=== PATIENT | female | born 1975 | race Caucasian/White ===

== ENCOUNTER 2017-09-30 11:24 | Emergency (ER) | payer BC ==
[~2017-09-30] VITALS: Ht 177.8 cm; Wt 75.3 kg
[2017-09-30 11:37] VITALS: TEMP 36.3; Ht 177.8 cm; Wt 75.3 kg
--- NOTE | 2017-09-30 13:07 | DIAGNOSTIC IMAGING REPORT ---
L HAND MIN 3 VIEWS ROUTINE CLINICAL HISTORY: L 3rd-5th finger pain s/p fall trauma. Pain. COMPARISON: None. DISCUSSION: The bones and joint spaces appear intact. There is no evidence of fracture, dislocation or bony disease. There is no evidence for soft tissue swelling. IMPRESSION: Negative study. The above report was generated using voice recognition software. It may contain grammatical, syntax or spelling errors. Electronically signed by: Omega Reaves M.D. 09/30/2017 1:06 PM Dictated Date/Time: 09/30/2017 1:05 PM
[2017-09-30] MEDS ORDERED: TRAM-10 PO (13:30)
[2017-09-30 13:38] VITALS: BP 111/74; PULSE 89; O2SAT 99
--- NOTE | 2017-09-30 15:38 | EMERGENCY ROOM VISIT NOTE ---
History First contact with patient: 11:53 Chief Complaint: FINGER PAIN Stated Complaint: FALL - SWOLLEN & BRUISED FINGERS History of Present Illness The patient is a 42 year old female who presents to the Emergency Room with complaints of injuries to her left hand after slipping on wooden stairs and falling down 12 steps today. Other then mild bruising to the right hip and right elbow, the patient complains mostly of left hand pain, specifically the ring finger. She reports a cut to the third finger as well. Tetanus immunization is up-to-date. The patient is [id number], and rates her discomfort an 8 out of 10. The patient denies any head injury, neck pain, back pain, rib pain, shortness of breath or abdominal pain. Review of Systems 10 system review was performed and was negative except for pertinent positives and negatives as indicated in history of present illness Past Medical/Surgical History Medical Problems: (1) No significant past medical history Surgical Problems: (1) No history of previous surgery Family History Unremarkable Social History Smoking Status: Never Smoker Alcohol Use: none Marital Status: Housing Status: lives with family Occupation Status: employed Current/Historical Medications Scheduled PRN Tramadol (Ultram), 1-2 TAB PO Q4H PRN for Pain Physical Exam Vital Signs Date Time Temp Pulse Resp B/P (MAP) Pulse Ox O2 Delivery O2 Flow Rate FiO2 09/30/17 13:38 89 18 111/74 99 09/30/17 11:37 36.3 73 18 117/73 99 Room Air Physical Exam CONSTITUTIONAL: Healthy and well nourished. Alert and oriented X 3 with positive affect. Patient does not appear in any acute distress on exam. HEENT: Normocephalic, atraumatic. Pupils equal, round and reactive. No epistaxis, hemotympanum, raccoon's eyes or Steward sign. NECK: Full active range of motion without discomfort. RESPIRATORY: Clear to auscultation bilaterally with no wheezing, crackles, rhonchi or stridor. CARDIOVASCULAR: Regular rate and rhythm with no murmurs, rubs or gallops. GASTROINTESTINAL: Bowel sounds present in all quadrants. Soft and nontender to palpation. MUSCULOSKELETAL: Examination of the left hand shows notable edema and ecchymosis of the left fourth finger. Although collateral ligaments are intact , the patient has significant discomfort while doing so. She is unable to flex and extend the finger because of discomfort. She also has mild erythema and edema of the third through fifth fingers. She has a small laceration of the nail fold of the third finger that is well approximated. The patient has no focal tenderness to palpation through the metacarpals or wrists. The patient is unable to flex the fourth finger because of pain. Otherwise the patient has no other significant findings: Comprehensive musculoskeletal exam. Distal pulses are intact. INTEGUMENTARY: No rash or other significant dermatologic conditions noted. NEUROLOGIC: Left hand and fingers are sensory intact. Medical Decision & Procedures ER Provider Diagnostic Interpretation: My interpretation of left hand x-rays does not show any obvious fractures or dislocations. Radiologist report is as follows: L HAND MIN 3 VIEWS ROUTINE CLINICAL HISTORY: L 3rd-5th finger pain s/p fall trauma. Pain. COMPARISON: None. DISCUSSION: The bones and joint spaces appear intact. There is no evidence of fracture, dislocation or bony disease. There is no evidence for soft tissue swelling. IMPRESSION: Negative study. ED Course Patient history and physical exam were performed. Nurse's notes were reviewed. Vital signs were reviewed and were normal. The patient refused any analgesics while in the emergency department. X-rays of the left hand were normal. The patient does have notable tenderness to palpation of the ring finger. Ligamentous exam was intact, however the patient had significant discomfort while doing so. I'm also concerned about possible tendon injury as well, however this could not be adequately assessed because of patient discomfort. The patient's fingers were splinted and nandini taped. She was provided contact information for Dr. Walker, [facility] hand surgeon, for further reevaluation and management. She was encouraged to intermittently apply ice to the hand. Ibuprofen and Tylenol in alternating fashion as needed for pain relief. The patient was provided a prescription for Ultram if needed for worse pain. The patient was happy with plan of care, voiced understanding of all discharge instructions, and rated her discomfort a 4 out of 10 at the conclusion of my exam. Medical Decision [place] Drug Monitoring Program Search Results: patient reviewed within database, no issues identified Medication Reconcilliation Current Medication List: was personally reviewed by me Blood Pressure Screening Patient's blood pressure: Normal blood pressure Impression Primary Impression: Sprain of left ring finger Additional Impressions: Fall down steps Injury of left hand Departure Information Dispostion Home / Self-Care Condition GOOD Prescriptions Tramadol (Ultram) 50 Mg Tab 1-2 TAB PO Q4H Y for Pain, #20 TAB For Initial Treatment Prov: Yohannes Garcia PA 09/30/17 Referrals Radames Walker MD Forms HOME CARE DOCUMENTATION FORM, IMPORTANT VISIT INFORMATION Patient Instructions My [facility] [place] [employer] Additional Instructions Intermittently apply ice to hand and fingers. Wear metal splint and nandini tape your third and fourth fingers together for support. Keep finger wound clean and covered with an antibody ointment and Band-Aid until it heals. Ibuprofen 800 mg and/or Tylenol 1000 mg every 8 hours. You may also alternate these medications for more effective pain relief: Ibuprofen --4 HRS--> Tylenol --4 HRS--> ibuprofen --4 HRS--> Tylenol .... Ultram if needed for worse pain. Follow-up with Dr. Walker ([facility] hand surgeon) for further reevaluation and management - call for an appointment. Problem Qualifiers Primary Impression: Sprain of left ring finger Encounter type: initial encounter Sprain of finger site: interphalangeal joint Qualified Codes: S63.635A - Sprain of interphalangeal joint of left ring finger, initial encounter Additional Impressions: Fall down steps Encounter type: initial encounter Qualified Codes: W10.8XXA - Fall (on) ( from) other stairs and steps, initial encounter Injury of left hand Encounter type: initial encounter Qualified Codes: S69.92XA - Unspecified injury of left wrist, hand and finger(s), initial encounter
== END 2017-09-30 13:39 | disposition home or self-care (01) ==
LOC: C.EDB 11:25 → MERGE 11:25 → C.EDD 13:39
DX: S63.635A Sprain of interphalangeal joint of left ring finger, initial encounter (principal); W10.9XXA Fall (on) (from) unspecified stairs and steps, initial encounter; Y92.9 Unspecified place or not applicable